=== PATIENT | male | born 1980 | race Caucasian/White ===

== ENCOUNTER 2021-08-07 02:19 | Emergency (ER) | payer OTHER ==
[~2021-08-07] VITALS: Ht 172.7 cm; Wt 112.0 kg
[2021-08-07] MEDS ORDERED: ATORVASTATIN CA40 M1 PO (02:30)
== END 2021-08-07 04:58 | disposition home or self-care (01) ==
LOC: ED 02:19
DX: U07.1 COVID-19 (principal); F17.200 Nicotine dependence, unspecified, uncomplicated